=== PATIENT | female | born 1940 | race Caucasian/White ===

== ENCOUNTER 2016-09-30 12:27 | Emergency (ER) | payer MEDICARE ==
[~2016-09-30] VITALS: Ht 157.5 cm; Wt 92.1 kg
[~2016-09-30 12:27] MED LIST: ACET325 PO; ATEN1TAB75 PO; ATOR10 PO; FLON0.053; HYDR-2768 PO; LOSA25TA31 PO; MOTR200T PO; PRIL20CA PO; TAB-TAB PO; VENTAER INH
[2016-09-30 12:39] VITALS: BP 152/72; PULSE 61; RESP 16; TEMP 98.2; O2SAT 94
[2016-09-30] MEDS ORDERED: ATEN100T PO (13:49)
[2016-09-30] MEDS ORDERED: COQ-100C2 PO (13:49)
[2016-09-30] MEDS ORDERED: DILT120T PO (13:49)
[2016-09-30] MEDS ORDERED: HYDR12.56 PO (13:49)
[2016-09-30] MEDS ORDERED: MULT400T PO (13:49)
[2016-09-30] MEDS ORDERED: APIX5TAB PO (13:49)
[2016-09-30] MEDS ORDERED: LIPI10TA PO (13:49)
[2016-09-30] MEDS ORDERED: LACTCAP8 PO (13:49)
[2016-09-30] MEDS ORDERED: PAXI20TA PO (14:01)
--- NOTE | 2016-09-30 14:08 | PD ---
HPI Chief Complaint: Injury Time Seen by Provider: 14:05 Travel History International Travel<30 days: No Contact w/Intl Traveler<30days: No Traveled to known affect area: No History of Present Illness HPI Patient is a 76-year-old female who presents emergency for evaluation of right elbow swelling. Patient states she hit her elbow on her door frame 2 days ago, resulting in the swelling. She states that she hits her elbow frequently because she uses a walker and doesn't want hit the door or post and sticks her elbows up. Patient presented because she is on Eliquis and was concerned that she had a blood clot in her elbow. Denies any fevers, chills, redness or pain. PFSH Past Medical History Hx Anticoagulant Therapy: Yes (ELIQUIS) Arthritis: Yes Autoimmune Disease: No Depression: Yes Cancer: Yes (OVARIAN) Cardiovascular Problems: Yes High Cholesterol: Yes Chemotherapy: No Diminished Hearing: No Endocrine: No Gastrointestinal Disorders: Yes (HERNIA RIGHT GROIN ) GERD: Yes Genitourinary: No Hiatal Hernia: Yes Hypertension: Yes Immune Disorder: No Inguinal Hernia: Yes Musculoskeletal: Yes Neurologic: Yes (LEFT HAND TREMOR) Psychiatric: No Reproductive: No Respiratory: Yes Radiation Therapy: No Past Surgical History Section: Yes Gynecologic Surgery: Yes (2 C-SECTIONS/HYSTERECTOMY OVARIAN CA,STAGE 1 ENCAPSULATED) Hysterectomy: Yes Other Surgery: Yes Social History Alcohol Use: No Tobacco Use: No Substance Use: No Allergies-Medications (Allergen,Severity, Reaction): Coded Allergies: Macrobid (Verified Allergy, Severe, ITCHY THROAT, 09/30/16) Sulfa (Verified Allergy, Mild, RASH, 09/30/16) Reported Meds & Prescriptions Reported Meds & Active Scripts Active Reported Paxil (Paroxetine HCl) 20 Mg Tab Unknown Dose PO DAILY Lipitor (Atorvastatin Calcium) 10 Mg Tab 10 Mg PO HS Diltiazem (Diltiazem HCl) 120 Mg Tab 360 Mg PO DAILY Probiotic (Lactobacillus Acidophilus) 1 Cap Cap 1 Cap PO TIDAC Coq-10 (Coenzyme Q10 (Ubidecarenone)) 100 Mg Cap Hydrochlorothiazide 12.5 Mg Tab 12.5 Mg PO DAILY Atenolol 100 Mg Tab 100 Mg PO DAILY Multaq (Dronedarone) 400 Mg Tab Unknown Dose PO BID Eliquis (Apixaban) 5 Mg Tab 5 Mg PO BID Review of Systems Except as stated in HPI: all other systems reviewed are Neg Musculoskeletal: Positive: Edema Physical Exam Narrative GENERAL: Well-nourished, well-developed patient. SKIN: Warm and dry. HEAD: Normocephalic. EYES: No scleral icterus. No injection or drainage. NECK: Supple, trachea midline. No JVD or lymphadenopathy. CARDIOVASCULAR: Regular rate and rhythm without murmurs, gallops, or rubs. RESPIRATORY: Breath sounds equal bilaterally. No accessory muscle use. GASTROINTESTINAL: Abdomen soft, non-tender, nondistended. MUSCULOSKELETAL: No cyanosis, edema noted to the right olecraneon process, no erythema or warmth noted. Full range of motion in right elbow. Positive a radial pulse, brisk and less than 3 second capillary refill. BACK: Nontender without obvious deformity. No CVA tenderness. Data Data Last Documented VS Vital Signs Date Time Temp Pulse Resp B/P Pulse Ox O2 Delivery O2 Flow Rate FiO2 09/30/16 12:39 98.2 61 16 152/72 94 [facility] Medical Decision Making Medical Screen Exam Complete: Yes Emergency Medical Condition: Yes Interpretation(s) Vital Signs Date Time Temp Pulse Resp B/P Pulse Ox O2 Delivery O2 Flow Rate FiO2 09/30/16 12:39 98.2 61 16 152/72 94 Differential Diagnosis Bursitis versus septic arthritis versus cellulitis versus other Narrative Course Patient is a 76-year-old female who presented to the emergency room for evaluation of right elbow swelling that occurred after she hit her elbow on the door jam 2 days ago. Patient states that she hit her elbow frequently, she denies any significant pain but was concerned that she is on Eliquis and could have a blood clot. Patient is neurovascularly intact, she has full range of motion in her right elbow, range of motion does not increase pain. Patient's vital signs are stable, she is afebrile. An Glynn wrap will be utilized to apply pressure to the right elbow. Patient was advised he could take several weeks for the swelling to completely resolve. She is encouraged to continue range of motion exercises apply cool compresses to the area. She is encouraged to return to emergency department immediately for any new or worsening symptoms including but not limited to fevers, chills, increased redness or pain. She verbalizes understanding of these instructions. Patient is stable for discharge. Diagnosis Primary Impression: Bursitis of elbow Qualified Code: M70.31 - Bursitis of right elbow Referrals: Primary Care Physician Patient Instructions: Elbow Bursitis (GEN), Elbow Bursitis Exercises (GEN), General Instructions Additional Instructions: Return to emergency department immediately for any new or worsening symptoms Apply Glynn wrap to help alleviate swelling May take [id number] acetaminophen as needed and as directed Follow-up with your primary doctor Med/Other Pt SpecificInfo: No Change to Meds Disposition: 01 DISCHARGE HOME Condition: Stable Jada Fernandez Sep 30, 2016 14:08
== END 2016-09-30 14:47 | disposition home or self-care (01) ==
LOC: PHEFT 12:27
DX: M70.31 Other bursitis of elbow, right elbow (principal); E78.00 Pure hypercholesterolemia, unspecified; I10 Essential (primary) hypertension; Z79.01 Long term (current) use of anticoagulants
CPT/HCPCS: 99283

== ENCOUNTER 2016-10-20 07:39 | Emergency (ER) | payer MEDICARE ==
[~2016-10-20] VITALS: Ht 157.5 cm; Wt 92.0 kg
[~2016-10-20 07:39] MED LIST changes: -ACET325 PO; +APIX5TAB PO; +ATEN100T PO; -ATEN1TAB75 PO; -ATOR10 PO; +COQ-100C2 PO; +DILT120T PO; -FLON0.053; -HYDR-2768 PO; +HYDR12.56 PO; +LACTCAP8 PO; +LIPI10TA PO; -LOSA25TA31 PO; -MOTR200T PO; +MULT400T PO; +PAXI20TA PO; -PRIL20CA PO; -TAB-TAB PO; -VENTAER INH
[2016-10-20 07:49] VITALS: BP 156/78; PULSE 94; RESP 16; TEMP 97.8; O2SAT 96
[2016-10-20 08:08] VITALS: RESP 16; TEMP 97.8
[2016-10-20 08:12] LABS: BLOOD, URINE SMALL (NEG); GLUCOSE,URINE NEG (NEG); KETONE, URINE NEG (NEG); NITRITE,URINE NEG (NEG)
[2016-10-20] MEDS ORDERED: PHEN0.4T PO (08:12)
--- NOTE | 2016-10-20 08:13 | PD ---
HPI Chief Complaint: Complaint Time Seen by Provider: 08:01 Travel History International Travel<30 days: No Contact w/Intl Traveler<30days: No History of Present Illness HPI Patient is a 76-year-old female sent to emergency room with complaints of possible urinary tract infection. Patient reports that since last night, she has had increased urinary urgency and frequency and dysuria. Patient reports that she has not been able to sleep as she had to wake up and urinate every 20 minutes. Patient denies any hematuria at this time. Patient denies fevers or chills. Patient reports increased pressure above her suprapubic area in her abdomen. Patient reports that she has had urinary tract infections in the past , reports the symptoms feel similar to previous episodes. Patient with no other complaints at this time. PFSH Past Medical History Hx Anticoagulant Therapy: Yes (ELIQUIS) Arthritis: Yes Autoimmune Disease: No Depression: Yes Cancer: Yes (OVARIAN) Cardiovascular Problems: Yes High Cholesterol: Yes Chemotherapy: No Diminished Hearing: No Endocrine: No Gastrointestinal Disorders: Yes (HERNIA RIGHT GROIN ) GERD: Yes Genitourinary: No Hiatal Hernia: Yes Hypertension: Yes Immune Disorder: No Inguinal Hernia: Yes Musculoskeletal: Yes Neurologic: Yes (LEFT HAND TREMOR) Psychiatric: No Reproductive: No Respiratory: Yes Radiation Therapy: No Past Surgical History Section: Yes Gynecologic Surgery: Yes (2 C-SECTIONS/HYSTERECTOMY OVARIAN CA,STAGE 1 ENCAPSULATED) Hysterectomy: Yes Other Surgery: Yes Social History Alcohol Use: No Tobacco Use: No Substance Use: No Allergies-Medications (Allergen,Severity, Reaction): Coded Allergies: Macrobid (Verified Allergy, Severe, ITCHY THROAT, 10/20/16) Sulfa (Verified Allergy, Mild, RASH, 10/20/16) Reported Meds & Prescriptions Reported Meds & Active Scripts Active Pyridium (Phenazopyridine HCl) 100 Mg Tab 100 Mg PO Q8H PRN 3 Days Reported Paxil (Paroxetine HCl) 20 Mg Tab Unknown Dose PO DAILY Lipitor (Atorvastatin Calcium) 10 Mg Tab 10 Mg PO HS Diltiazem (Diltiazem HCl) 120 Mg Tab 360 Mg PO DAILY Probiotic (Lactobacillus Acidophilus) 1 Cap Cap 1 Cap PO TIDAC Coq-10 (Coenzyme Q10 (Ubidecarenone)) 100 Mg Cap Hydrochlorothiazide 12.5 Mg Tab 12.5 Mg PO DAILY Atenolol 100 Mg Tab 100 Mg PO DAILY Multaq (Dronedarone) 400 Mg Tab Unknown Dose PO BID Eliquis (Apixaban) 5 Mg Tab 5 Mg PO BID Review of Systems General / Constitutional: No: Fever Eyes: No: Visual changes HENT: No: Headaches Cardiovascular: No: Chest Pain or Discomfort Respiratory: No: Shortness of Breath Gastrointestinal: No: Nausea, Vomiting, Abdominal Pain Genitourinary: Positive: Urgency, Frequency, Dysuria, Hesitancy, No: Hematuria , Pelvic Pain, Flank Pain, Discharge, Vaginal Bleeding Musculoskeletal: No: Pain Skin: No Rash Neurologic: No: Weakness Psychiatric: No: Depression Endocrine: No: Polydipsia Hematologic/Lymphatic: No: Easy Bruising Physical Exam Narrative GENERAL: NAD, Nontoxic SKIN: Warm and dry. HEAD: Atraumatic. Normocephalic. CARDIOVASCULAR: Regular rate and rhythm. No murmur appreciated. RESPIRATORY: No accessory muscle use. Clear to auscultation. Breath sounds equal bilaterally. GASTROINTESTINAL: Abdomen soft, non-tender, nondistended. Mild suprapubic tenderness on exam. MUSCULOSKELETAL: No obvious deformities. No clubbing. No cyanosis. No edema. NEUROLOGICAL: Awake and alert. No obvious cranial nerve deficits. Motor grossly within normal limits. Normal speech. PSYCHIATRIC: Appropriate mood and affect; insight and judgment normal. Data Data Last Documented VS Vital Signs Date Time Temp Pulse Resp B/P Pulse Ox O2 Delivery O2 Flow Rate FiO2 10/20/16 08:08 97.8 16 10/20/16 07:49 94 156/78 96 Orders Urinalysis - C+S If Indicated (10/20/16 07:44) Ciprofloxacin (Cipro) (10/20/16 08:30) Labs Laboratory Tests Test 10/20/16 07:46 Urine Collection Type CLEAN CATCH Urine Color YELLOW Urine Turbidity CLEAR Urine pH 7.0 Urine Specific [place] 1.012 Urine Protein NEG mg/dL Urine Glucose (UA) NEG mg/dL Urine Ketones NEG mg/dL Urine Occult Blood SMALL Urine Nitrite NEG Urine Bilirubin NEG Urine Leukocyte Esterase SMALL Urine RBC 0-3 /hpf Urine WBC 3-5 /hpf Urine Squamous Epithelial 0-5 /hpf Cells Urine Transitional Epithelial 0-5 /hpf Cells Microscopic Urinalysis Comment CULT NOT INDICATED MDM Medical Decision Making Medical Screen Exam Complete: Yes Emergency Medical Condition: Yes Interpretation(s) Vital Signs Date Time Temp Pulse Resp B/P Pulse Ox O2 Delivery O2 Flow Rate FiO2 10/20/16 07:49 97.8 94 16 156/78 96 Differential Diagnosis Cystitis, pyelonephritis Narrative Course Patient is a 76-year-old female who presents to emergency room with complaints of urinary urgency, frequency, dysuria since last night. Patient reports that she has had history of multiple uti's in the past. Patient reports that symptoms feel similar to the past when she has had uti's. VSS Vital Signs Date Time Temp Pulse Resp B/P Pulse Ox O2 Delivery O2 Flow Rate FiO2 10/20/16 07:49 97.8 94 16 156/78 96 UA ordered. UA with small occult blood, small leuk esterase, 3-5 white blood cells, patient with symptomatic urinary tract infection. Symptoms are similar to previous UTI episodes. Will treat patient with antibiotics. Signs and symptoms of when to return to the emergency room was reviewed with patient in detail. Patient happy with plan of care. Diagnosis Primary Impression: UTI (urinary tract infection) Qualified Code: N30.01 - Acute cystitis with hematuria Patient Instructions: General Instructions Additional Instructions: Please return to emergency room as needed Please call your primary care doctor for earliest follow-up appointment Please return to emergency room if you develop fevers chills, nausea, vomiting, or progression of symptoms. Med/Other Pt SpecificInfo: Prescription(s) given Scripts Ciprofloxacin (Cipro)500 Mg [id number] Mg PO BID 7 Days Ref 0 Prov:Disha Mack DO 10/20/16 Phenazopyridine (Pyridium)100 Mg [id number] Mg PO Q8H PRN (DYSURIA) 3 Days Ref 0 Prov:Disha Mack DO 10/20/16 Disposition: 01 DISCHARGE HOME Condition: Stable Disha Mack DO Oct 20, 2016 08:13
[2016-10-20 08:16] LABS: METHOD OF COLLECTION CLEAN CATCH; URINE COLOR YELLOW (YELLW/STRAW)
[2016-10-20 08:17] LABS: COMMENT (UR) CULT NOT INDICATED; CULTURE IF INDICATED CULT NOT INDICATED; RBC, URINE 0-3 /hpf (0-3); SQUAMOUS EPITHELIAL CELL URINE 0-5 /hpf (0-5)
[2016-10-20 08:18] LABS: TRANSITIONAL EPI CELLS, URINE 0-5 /hpf
[2016-10-20] MEDS ORDERED: CIPR-9 PO (08:28)
[2016-10-20] MEDS ORDERED: CIPROFLOXACIN 500 MG TAB PO ONE (08:30)
== END 2016-10-20 08:46 | disposition home or self-care (01) ==
LOC: PHED 07:39
DX: N39.0 Urinary tract infection, site not specified (principal); I10 Essential (primary) hypertension; F32.9 Major depressive disorder, single episode, unspecified; M19.90 Unspecified osteoarthritis, unspecified site; Z79.01 Long term (current) use of anticoagulants
CPT/HCPCS: 81001; 99283

== ENCOUNTER 2016-11-20 19:57 | Emergency (ER) | payer MEDICARE ==
[~2016-11-20 19:57] MED LIST changes: +CIPR-9 PO; +PHEN0.4T PO
[2016-11-20 20:02] VITALS: BP 166/68; PULSE 59; RESP 20; TEMP 98.4; O2SAT 93
[2016-11-20] MEDS ORDERED: DILT360C12 PO (21:34)
[2016-11-20] MEDS ORDERED: ACET1CAP18 PO (21:34)
--- NOTE | 2016-11-20 21:51 | PD ---
HPI Chief Complaint: Cold / Flu Symptoms Time Seen by Provider: 21:26 Travel History International Travel<30 days: No Contact w/Intl Traveler<30days: No Traveled to known affect area: No History of Present Illness HPI 76-year-old female complains of coughing, congestion, fever, headache, body ache. Patient states that the symptoms started 2 days ago. Patient states the cough is mild intermittent and nonproductive. Patient states that she has some burning sensation on the chest wall. Patient denies any abdominal pain. Patient denies any nausea vomiting diarrhea. Patient denied dysuria or frequency. PFSH Past Medical History Hx Anticoagulant Therapy: Yes (ELIQUIS ) Arthritis: Yes Autoimmune Disease: No Depression: Yes Cancer: Yes (OVARIAN) Cardiovascular Problems: Yes (A FIB) High Cholesterol: Yes Chemotherapy: No Cerebrovascular Accident: Yes Diabetes: No Diminished Hearing: No Endocrine: No Gastrointestinal Disorders: Yes (HERNIA RIGHT GROIN ) GERD: Yes Genitourinary: No Hiatal Hernia: Yes Hypertension: Yes Immune Disorder: No Inguinal Hernia: Yes Musculoskeletal: Yes Neurologic: Yes (LEFT HAND TREMOR) Psychiatric: No Reproductive: No Respiratory: Yes Radiation Therapy: No Past Surgical History Section: Yes Gynecologic Surgery: Yes (2 C-SECTIONS/HYSTERECTOMY OVARIAN CA,STAGE 1 ENCAPSULATED) Hysterectomy: Yes Other Surgery: Yes Social History Alcohol Use: No Tobacco Use: No Substance Use: No Allergies-Medications (Allergen,Severity, Reaction): Coded Allergies: Macrobid (Verified Allergy, Severe, ITCHY THROAT, 11/20/16) Sulfa (Verified Allergy, Mild, RASH, 11/20/16) Reported Meds & Prescriptions Reported Meds & Active Scripts Active Reported Tylenol (Acetaminophen) 325 Mg Cap 325 Mg PO Q6H PRN Diltiazem CD 24 HR 360 Mg Capcr 360 Mg PO DAILY Paxil (Paroxetine HCl) 20 Mg Tab Unknown Dose PO DAILY Lipitor (Atorvastatin Calcium) 10 Mg Tab 10 Mg PO HS Probiotic (Lactobacillus Acidophilus) 1 Cap Cap 1 Cap PO TIDAC Coq-10 (Coenzyme Q10 (Ubidecarenone)) 100 Mg Cap 100 Mg PO DAILY Hydrochlorothiazide 12.5 Mg Tab 12.5 Mg PO DAILY Atenolol 100 Mg Tab 100 Mg PO DAILY Multaq (Dronedarone) 400 Mg Tab 400 Mg PO BID Eliquis (Apixaban) 5 Mg Tab 5 Mg PO BID Review of Systems General / Constitutional: Positive: Fever Eyes: No: Visual changes HENT: Positive: Headaches Cardiovascular: Positive: Chest Pain or Discomfort Respiratory: Positive: Cough, No: Shortness of Breath Gastrointestinal: No: Abdominal Pain Genitourinary: No: Dysuria Musculoskeletal: No: Pain Skin: No Rash Neurologic: No: Weakness Psychiatric: No: Depression Endocrine: No: Polydipsia Hematologic/Lymphatic: No: Easy Bruising Physical Exam Narrative GENERAL: Well-nourished, well-developed patient. SKIN: Warm and dry. HEAD: Normocephalic. EYES: No scleral icterus. No injection or drainage. Throat: Nonerythematous. NECK: Supple, trachea midline. No JVD or lymphadenopathy. CARDIOVASCULAR: Regular rate and rhythm without murmurs, gallops, or rubs. RESPIRATORY: Breath sounds equal bilaterally. No accessory muscle use. GASTROINTESTINAL: Abdomen soft, non-tender, nondistended. MUSCULOSKELETAL: No cyanosis, or edema. BACK: Nontender without obvious deformity. No CVA tenderness. Data Data Last Documented VS Vital Signs Date Time Temp Pulse Resp B/P Pulse Ox O2 Delivery O2 Flow Rate FiO2 11/20/16 22:03 55 18 193/74 97 Room Air 11/20/16 22:02 98.4 Orders Electrocardiogram (11/20/16 21:40) Influenzae A/B Antigen (11/20/16 21:40) Chest, Single Ap (11/20/16 21:40) MDM Medical Decision Making Medical Screen Exam Complete: Yes Emergency Medical Condition: Yes Interpretation(s) 21:50 PM. EKG shows sinus bradycardia rate 55. Nonspecific ST-T wave change. 22:27 PM. Chest x-ray shows no acute consolidation. Flu AB antigen negative. Differential Diagnosis Differential diagnoses: Viral syndrome, bronchitis, pneumonia. Narrative Course 76-year-old female with headache, fever, coughing congestion, body ache. Diagnosis Primary Impression: Bronchitis Additional Impression: Viral syndrome Patient Instructions: General Instructions Additional Instructions: Take medication as directed. Tylenol Motrin for fever. Follow-up with personal physician. Return if persistent problem or worse. Med/Other Pt SpecificInfo: Prescription(s) given Scripts [Phenergan W Codein] No Conflict Check10 Ml PO Q6HR #120 Prov:Mirza Arellano MD 11/20/16 Azithromycin (Zithromax Z-Syed)250 Mg [id number] Mg PO DIRECTED #1 DSPK 500 MG (2 tabs) day 1, then 1 tab days 2-5. Prov:Mirza Arellano MD 11/20/16 Disposition: 01 DISCHARGE HOME Condition: Stable Mirza Arellano MD Nov 20, 2016 21:51
[2016-11-20 22:02] VITALS: BP_SYST 66; PULSE 55; RESP 18; TEMP 98.4; O2SAT 97
[2016-11-20 22:03] VITALS: BP 193/74; PULSE 55; RESP 18; O2SAT 97
--- NOTE | 2016-11-20 22:23 | RADHPO ---
EXAM DATE/TIME: 11/20/2016 22:09 [place] COMPARISON: No previous studies available for comparison. INDICATIONS : Cough and congestion. MEDICAL HISTORY : A-fib SURGICAL HISTORY : Cholecystectomy. ENCOUNTER: Initial ACUITY: 1 day PAIN SCORE: 6/10 LOCATION: Bilateral chest FINDINGS: A single view of the chest demonstrates linear atelectasis or scarring at the lung bases. No focal co nsolidation. No effusion. No pneumothorax. Heart size mildly enlarged. CONCLUSION: 1. Linear atelectasis or scarring at the lung bases. No effusion or pneumothorax. Caleb Cameron MD on November 20, 2016 at 22:18 Board Certified Radiologist. This report was verified electronically.
[2016-11-20] MEDS ORDERED: ZITHTAB PO (22:34)
[2016-11-20] MEDS ORDERED: PHENERGAN W CODEIN PO (22:34)
[2016-11-20] MEDS ORDERED: AZITHROMYCIN 250 MG TAB PO ONE (23:00)
--- NOTE | 2016-11-21 14:58 | EKG ---
Date Performed: 11/20/2016 Time Performed: 21:35:58 PTAGE: 76 years EKG: Sinus bradycardia Normal ECG except for rate Compared to prior tracing no significant dat cast PREVIOUS TRACING : 12/07/2009 11.29 DOCTOR: Alondra Gallo Interpretating Date/Time 11/21/2016 14:51:42
== END 2016-11-20 23:07 | disposition home or self-care (01) ==
LOC: PHED 19:57
DX: J40 Bronchitis, not specified as acute or chronic (principal); B34.9 Viral infection, unspecified; R00.1 Bradycardia, unspecified; I10 Essential (primary) hypertension; R25.1 Tremor, unspecified; Z86.73 Personal history of transient ischemic attack (TIA), and cerebral infarction without residual deficits; E78.00 Pure hypercholesterolemia, unspecified; I48.91 Unspecified atrial fibrillation; Z79.01 Long term (current) use of anticoagulants; F32.9 Major depressive disorder, single episode, unspecified
CPT/HCPCS: 71010; 87804; 93005